=== PATIENT | female | born 2000 | race Asian ===

== ENCOUNTER 2021-06-30 02:58 | Inpatient (IN) ==
[2021-06-30 03:33] LABS: Urine Appearance Turbid; Urine Bilirubin Negative (Negative); Urine Blood 2+ (Negative); Urine Color Yellow; Urine Glucose Negative (Negative); Urine Ketones Negative (Negative); Urine Nitrite Negative (Negative); Urine Protein Negative (Negative); Urine Specific Gravity 1.016 (1.002-1.030); Urine Urobilinogen Negative (Negative)
[2021-06-30 03:48] LABS: Urine Benzodiazepine Screen None Detected (None Detect); Urine Cannabinoids Screen None Detected (None Detect); Urine Opiates Screen None Detected (None Detect)
[2021-06-30 03:59] LABS: Hematocrit 32 % (35-47); Hemoglobin 10.2 g/dL (12.0-16.0); Mean Corpuscular HGB Conc 32 g/dL (31-36); Mean Corpuscular Hemoglobin 24 pg (27-31); Mean Corpuscular Volume 74 fL (80-97); Mean Platelet Volume 7.5 fL (7.4-10.4); Platelet Count 235 10^3/uL (150-450); Red Blood Count 4.31 10^6 /uL (3.70-4.87); Red Cell Distribution Width 18 % (10-15); White Blood Count 4.6 10^3/uL (3.5-10.8)
[2021-06-30 04:06] LABS: Urine Bacteria Absent (Absent); Urine Red Blood Cell 3+(>10/hpf) (Absent); Urine Squamous Epithelial Cell Present (Absent); Urine White Blood Cell 1+(6-10/hpf) (Absent)
[2021-06-30 04:10] LABS: ALT 6 U/L (7-52); AST 13 U/L (13-39); Albumin 4.3 g/dL (3.2-5.2); Albumin/Globulin Ratio 1.7 (1-3); Alkaline Phosphatase 52 U/L (35-149); Anion Gap 7 mmol/L (2-11); Blood Urea Nitrogen 9 mg/dL (6-24); CO2 Carbon Dioxide 28 mmol/L (22-32); Calcium 9.1 mg/dL (8.6-10.3); Chloride 102 mmol/L (101-111); Globulin 2.5 g/dL (2-4); Glucose 84 mg/dL (70-100); Potassium 3.3 mmol/L (3.5-5.0); Sodium 137 mmol/L (135-145); Total Protein 6.8 g/dL (6.4-8.9)
[2021-06-30 04:17] LABS: HCG Pregnancy < 0.60 mIU/mL
[2021-06-30 04:19] LABS: ABS Eosinophils 0.1 10^3/ul (0-0.6); ABS Lymphocytes 1.8 10^3/ul (1.0-4.8); ABS Monocytes 0.2 10^3/ul (0-0.8); ABS Neutrophils 2.5 10^3/ul (1.5-7.7); Anisocytosis 1+; Eosinophil % 1.5 %; Lymphocyte % 39.3 %; Microcytosis 2+
[2021-06-30 04:53] LABS: Acetaminophen < 15 mcg/mL; Alcohol, S 21 mg/dL (<13); Salicylate < 2.50 mg/dL (<30)
[2021-06-30 05:39] LABS: Rapid COVID-19 Molecular Undetected (Undetected)
[2021-06-30] MEDS ORDERED: Al Hydrox/Mg Hydrox/Simet LIQ 30 ML UDC PO PRN (12:49)
[2021-07-01] MEDS: Vitamin THERAPEUTIC TAB PO SCH (10:04)
[2021-07-02] MEDS: Vitamin THERAPEUTIC TAB PO SCH (08:25)
[2021-07-02 09:20] LABS: Vitamin D Total 25(OH) 17.8 ng/mL (20-50)
[2021-07-02 10:43] VITALS: BP 95/65
== END 2021-07-02 17:43 | disposition home or self-care (01) | DRG 881 ==
LOC: ED 02:58 → BSU 08:45
PROVIDERS: ADMIT Psychiatry & Neurology Psychiatry; ATTEND Psychiatry & Neurology Psychiatry